=== PATIENT | female | born 1950 | race Caucasian/White ===

== ENCOUNTER 2016-12-24 17:35 | Emergency (ER) ==
[2016-12-24 18:13] LABS: MANUAL DIFF NEEDED? NO
[2016-12-24 18:21] LABS: URINE MICRO REVIEW NEEDED? NO; URINE SOURCE CLEAN CATCH
[2016-12-24 18:25] LABS: EOS# 0.02 X1000 (0.0-0.7); EOS% 0.6 % (0.0-10.0); HEMATOCRIT 40.8 % (37.0-47.0); HEMOGLOBIN 14.2 g/dL (12.0-16.0); LYMPH# 0.96 X1000 (1.2-3.4); LYMPH% 26.5 % (20.5-51.1); MCH 31.6 PG (27-31); MCHC 34.8 g/dL (33-37); MCV 90.9 FL (81-99); MONO% 5.5 % (1.7-9.3); MPV 10.3 FL (7.4-10.4); NEUT% 67.4 % (42.2-75.2); PLT 186 X1000 (130-400); RBC 4.49 XMIL (4.2-5.4)
[2016-12-24 18:31] LABS: BILIRUBIN URINE NEGATIVE (NEGATIVE); BLOOD URINE NEGATIVE (NEGATIVE); COLOR YELLOW; GLUCOSE URINE NEGATIVE (NEGATIVE); LEUKOCYTES URINE SMALL (NEGATIVE); NITRITE URINE NEGATIVE (NEGATIVE); PH URINE 7.5; PROTEIN URINE NEGATIVE (NEGATIVE); SP GRAVITY URINE 1.008; TURBIDITY URINE CLEAR (CLEAR); UROBILINOGEN URINE NORMAL (NORMAL)
[2016-12-24 18:34] LABS: UR EPITHELIAL CELLS <10 /HPF (<10); URINE BACTERIA NEGATIVE /HPF; URINE CULTURE NEEDED? YES; URINE RBC <10 /HPF (<10); URINE WBC <10 /HPF (<10)
[2016-12-24 18:44] LABS: ALBUMIN 4.5 g/dL (3.5-5.0); CALCIUM 9.8 mg/dL (8.8-10.2); POTASSIUM 3.8 mmol/L (3.5-5.1); TOTAL BILIRUBIN 0.34 mg/dL (0.20-1.00); TOTAL PROTEIN 7.1 g/dL (6.3-8.3)
[2016-12-24] MEDS ORDERED: ZOFRAN IV ONE (19:26)
[2016-12-24] MEDS ORDERED: MORPHINE IV ONE (19:26)
--- NOTE | 2016-12-24 19:32 | PROVIDER DOCUMENTATION ---
HPI-Abdominal Pain/GI Problem - General Source: patient - History of Present Illness-ABD Nature of Presenting Problems: 66 y/o F presents to the ED with abdominal pain/bloating, nausea for 3 days and a headache today. Pt has a hx of abdominal problems with complication after of her gallbladder removal with bile leak with a period of a colostomy bag. Everything is reversed. Abdominal Pain Onset Location: reports: generalized abdomen Pain Radiation: reports: no radiation Quality of Pain: reports: aching, tightness Severity in ED: reports: moderate Onset/Duration: reports: 3 days ago Timing: reports: still present Activities at Onset: reports: none Exposure to sick contacts?: No Modifying Factors: worse with: antacids, coughing, urinating Associated Symptoms: reports: headaches, nausea. denies: chest pain, cough, diarrhea, dizziness, fever/chills, sinus congestion/drainage, shortness of breath, vomiting, trouble walking Last BM: unsure Dark Stools Present?: reports: none noticed <Mahad Saab - Last Filed: 12/24/16 19:27> <Loi Bowles - Last Filed: 12/24/16 21:25> - General Chief Complaint: Abdominal Pain Stated Complaint: abd pain/nausea/headache Time Seen by Provider: 12/24/16 19:05 Allergies/Adverse Reactions: Patient Allergies Allergy/AdvReac Type Severity Reaction Status Date / Time adhesive AdvReac RASH Verified 12/24/16 19:43 Home Medications: Home Medication List Medication Instructions Recorded Confirmed Last Taken Type Amlodipine Besylate [Norvasc] 5 mg PO BID 12/29/14 12/24/16 12/24/16 History Bupropion S.r. [Wellbutrin Sr] 150 mg PO BID 12/29/14 12/24/16 12/24/16 History Duloxetine [Cymbalta] 90 mg PO DAILY 12/29/14 12/24/16 12/24/16 History Levothyroxine [Synthroid] 112 microgm PO DAILY 12/29/14 12/24/16 12/24/16 History Trazodone E.r. [Oleptro ER] 150 mg PO QHS 12/29/14 12/24/16 12/23/16 History Docusate Sodium [Colace] 100 mg PO BID #0 capsule 0612/24/16 12/24/16 Rx Polyethylene Glycol 3350 [Miralax] 17 gm PO DAILY #0 powder, packet 03/23/1512/24/16 Rx Aspirin 81 mg PO DAILY 12/24/16 12/24/16 12/24/16 History Docusate Sodium [Colace] 100 mg PO DAILY #10 capsule 12/24/16 Unknown Rx Magnesium Citrate [Citrate of 300 ml PO ONCE #1 bottle 12/24/16 Unknown Rx Magnesia] Na Phos,M-B/Na Phos,Di-Ba [Fleet 133 ml OK HS PRN PRN #3 enema 12/24/16 Unknown Rx Enema] Sulfamethoxazole/Trimethoprim 1 each PO BID #10 tablet 12/24/16 Unknown Rx [Bactrim Ds Tablet] Review of Systems - Adult - REVIEW OF SYSTEMS - ADULT Constitutional: denies: chills, fever Eyes: reports: no symptoms reported Ears, Nose, Mouth & Throat: reports: no symptoms reported Cardiovascular: denies: chest pain, edema Respiratory: denies: cough, shortness of breath, wheezing Gastrointestinal: reports: abdominal pain, nausea. denies: constipation, diarrhea, vomiting Genitourinary: reports: no symptoms reported Musculoskeletal: reports: no symptoms reported Integumentary: reports: no symptoms reported Neurological: reports: headache/migraines. denies: dizziness/vertigo, paresthesia, slurred speech, syncope Psychiatric: reports: no symptoms reported Endocrine: reports: no symptoms reported Hematologic/Lymphatic: reports: no symptoms reported Allergic/Immunologic: reports: no symptoms reported All Other Systems: Reviewed and Negative <Mahad Saab - Last Filed: 12/24/16 19:27> Past History - Adult - PAST MEDICAL HISTORY-ADULT Review of Records: reports: Old Records Reviewed, Nursing Assessment Review, Medications Reviewed Cardiovascular: reports: HTN, palpitations Psychiatric: reports: depression - PRIOR SURGERIES/PROCEDURES Surgical/Procedure History: reports: cholecystectomy - IMMUNIZATION STATUS Childhood Immunizations: See Nurse Assessment Flu Vaccine: See Nurse Assessment - SOCIAL HISTORY Smoking: non-smoker Substance Use: none/never Living Situation: family <Mahad Saab - Last Filed: 12/24/16 19:27> Physical Exam-General - PHYSICAL EXAM-ADULT Initial Vital Signs Reviewed: Yes - CONSTITUTIONAL General Appearance: appears well, alert, no apparent distress - EYES Eyes: PERRL/EOMI, pink conjunctivae - HEAD, EARS, NOSE, MOUTH & THROAT HENMT: moist mucous membranes, normal ENT inspection, TMs normal, pharynx normal - NECK Neck: non-tender, full range of motion, supple, normal inspection. negative: trachial deviation - RESPIRATORY Respiratory: lungs clear, normal breath sounds, no pleuratic chest pain, no respiratory distress, no accessory muscle use, respiratory distress - CARDIOVASCULAR Cardiovascular: normal peripheral pulses, regular rate, rhythm - GASTROINTESTINAL (ABDOMEN) Abdominal Exam: soft, tenderness (epigastrice). negative: normal bowel sounds ( Hypoactive), guarding, rebound, hernia, mass - MUSCULOSKELETAL Back Exam: normal inspection, no CVA tenderness, no vertebral tenderness Extremity: normal range of motion, non-tender, normal gait, normal inspection, no pedal edema - SKIN Integumentary: normal color, normal turgor, warm/dry - NEUROLOGIC Neurologic: grossly normal, no motor/sensory deficits - PSYCHIATRIC Psych/Mental Status: normal mood/affect, normal thought content, normal thought process, oriented x 3 <Mahad Saab - Last Filed: 12/24/16 19:27> Progress - PLAN OF CARE/RESULTS Progress/Plan/Lab Results: Discussed results and plan of care with patient. Patient agrees with plan and verbalizes understanding. Vital Signs Temp Pulse Resp BP Pulse Ox 12/24/16 17:53 98.4 F 79 20 185/93 98 adhesive Adverse Reaction (Verified 12/24/16 19:43) RASH Amlodipine Besylate [Norvasc] 5 mg PO BID 12/29/14 Bupropion S.r. [Wellbutrin Sr] 150 mg PO BID 12/29/14 Duloxetine [Cymbalta] 90 mg PO DAILY 12/29/14 Levothyroxine [Synthroid] 112 microgm PO DAILY 12/29/14 Trazodone E.r. [Oleptro ER] 150 mg PO QHS 12/29/14 Docusate Sodium [Colace] 100 mg PO BID #0 capsule 03/23/15 Polyethylene Glycol 3350 [Miralax] 17 gm PO DAILY #0 powder, packet 03/23/15 Aspirin 81 mg PO DAILY 12/24/16 I&O 12/23/16 12/24/16 12/25/16 06:59 06:59 06:59 Output Total 25 Balance -25 Laboratory 12/24/16 12/24/16 12/24/16 18:17 18:03 18:03 WBC 3.62 L RBC 4.49 Hgb 14.2 Hct 40.8 MCV 90.9 MCH 31.6 H MCHC 34.8 RDW Std Deviation 11.7 Plt Count 186 MPV 10.3 Immature Gran % (Auto) 0.0 Neut % (Auto) 67.4 Lymph % (Auto) 26.5 [place] % (Auto) 5.5 Eos % (Auto) 0.6 Baso % (Auto) 0.0 Immature Gran # (Auto) 0.00 Neut # (Auto) 2.44 Lymph # (Auto) 0.96 L [place] # (Auto) 0.20 Eos # (Auto) 0.02 Baso # (Auto) 0.00 Sodium 140 Potassium 3.8 Chloride 99 Carbon Dioxide 28 Anion Gap 13 BUN 11 Creatinine 1.0 H Estimated GFR/1.73 m2 55 BUN/Creatinine Ratio 11 Glucose 94 Calculated Osmolality 279 Calcium 9.8 Total Bilirubin 0.34 AST 13 ALT 10 Alkaline Phosphatase 69 Total Protein 7.1 Albumin 4.5 Globulin 2.6 Albumin/Globulin Ratio 1.7 Amylase 108 Lipase 28 Urine Source CLEAN CATCH Urine Color YELLOW Urine Turbidity CLEAR Urine pH 7.5 Ur Specific [place] 1.008 Urine Protein NEGATIVE Ur Glucose (Stick) NEGATIVE Ur Ketones (Stick) NEGATIVE Urine Blood NEGATIVE Urine Nitrite NEGATIVE Urine Bilirubin NEGATIVE Urobilinogen Dipstick NORMAL Urine Leukocytes SMALL A Urine WBC (Auto) <10 Urine RBC (Auto) <10 U Epithel Cells (Auto) <10 Urine Bacteria (Auto) NEGATIVE Orders Category Date Time Status Saline Loc NOW Care 12/24/16 17:[address] ABD/PELVIS W/ IV CONT ONLY [CT] Stat Exams 12/24/16 19:27 Taken FLAT/UPRIGHT ABD/1 VIEW CHEST [RAD] Stat Exams 12/24/16 17:51 Taken AMYLASE [CHEM] Stat Lab 12/24/16 18:03 Completed CBC WITH ELECTRONIC DIFF [HEME] Stat Lab 12/24/16 18:03 Completed COMPREHENSIVE METABOLIC PANEL [CHEM] Stat Lab 12/24/16 18:03 Completed LIPASE [CHEM] Stat Lab 12/24/16 18:03 Completed URINALYSIS W/POSS RFLX CULT [URINALYSIS] Stat Lab 12/24/16 18:17 Completed URINE CULTURE [RM] Routine Lab 12/24/16 19:23 Received Morphine Med 12/24/16 19:26 Discontinued 2 mg IV NOW ONE Ondansetron [Zofran] Med 12/24/16 19:26 Discontinued 4 mg IV NOW ONE Laboratory Tests 12/24/16 12/24/16 12/24/16 18:03 18:03 18:17 WBC 3.62 L RBC 4.49 Hgb 14.2 Hct 40.8 MCV 90.9 MCH 31.6 H MCHC 34.8 RDW Std Deviation 11.7 Plt Count 186 MPV 10.3 Immature Gran % (Auto) 0.0 Neut % (Auto) 67.4 Lymph % (Auto) 26.5 [place] % (Auto) 5.5 Eos % (Auto) 0.6 Baso % (Auto) 0.0 Immature Gran # (Auto) 0.00 Neut # (Auto) 2.44 Lymph # (Auto) 0.96 L [place] # (Auto) 0.20 Eos # (Auto) 0.02 Baso # (Auto) 0.00 Sodium 140 Potassium 3.8 Chloride 99 Carbon Dioxide 28 Anion Gap 13 BUN 11 Creatinine 1.0 H Estimated GFR/1.73 m2 55 BUN/Creatinine Ratio 11 Glucose 94 Calculated Osmolality 279 Calcium 9.8 Total Bilirubin 0.34 AST 13 ALT 10 Alkaline Phosphatase 69 Total Protein 7.1 Albumin 4.5 Globulin 2.6 Albumin/Globulin Ratio 1.7 Amylase 108 Lipase 28 Urine Source CLEAN CATCH Urine Color YELLOW Urine Turbidity CLEAR Urine pH 7.5 Ur Specific [place] 1.008 Urine Protein NEGATIVE Ur Glucose (Stick) NEGATIVE Ur Ketones (Stick) NEGATIVE Urine Blood NEGATIVE Urine Nitrite NEGATIVE Urine Bilirubin NEGATIVE Urobilinogen Dipstick NORMAL Urine Leukocytes SMALL A Urine WBC (Auto) <10 Urine RBC (Auto) <10 U Epithel Cells (Auto) <10 Urine Bacteria (Auto) NEGATIVE - CT/MRI 1 CT Study: Abdomen, Pelvis CT Results: Constipation ([place]) <Loi Bowles - Last Filed: 12/24/16 21:25> Departure <Mahad Saab - Last Filed: 12/24/16 19:27> - Departure Time of Disposition Order: 21:22 Certified Medical Emergency: Emergent <Loi Bowles - Last Filed: 12/24/16 21:25> - Departure DIAGNOSIS: Cystitis Constipation Qualifiers: Constipation type: unspecified constipation type Qualified Code(s): K59.00 - Constipation, unspecified Disposition: HOME 01 Condition: Stable Additional Instructions: Follow up with primary care physician Take medications as directed Return to ED for any concerns or worsening of symptoms ED Follow Up Instructions: You have been treated by a care provider in the Emergency Department. These instructions are being provided to you so you can have an understanding of how to care for yourself upon discharge. Upon discharge from the Emergency Department, you are responsible for making arrangements for follow-up care by a physician of your choice. Take all prescribed medications as directed. Return to the Emergency Department immediately for any new or worsening symptoms. You may call the Physician Referral phone number at [phone] to obtain a list of Physicians who are taking new patients. Prescriptions: Sulfamethoxazole/Trimethoprim [Bactrim Ds Tablet] 1 each PO BID #10 tablet Magnesium Citrate [Citrate of Magnesia] 300 ml PO ONCE #1 bottle Docusate Sodium [Colace] 100 mg PO DAILY #10 capsule Na Phos,M-B/Na Phos,Di-Ba [Fleet Enema] 133 ml OK HS PRN PRN #3 enema PRN Reason: Constipation Attestation - Scribe Verification/Attestation Scribe:: Mahad Saab Acting as Scribe for:: Loi Bowles Scribe documention review:: This chart was documented by a scribe and accurately reflects the service the provider performed and the decisions made by the provider. <Mahad Saab - Last Filed: 12/24/16 19:27> - Physician/ NABIL Attestation Patient care was provided by Advanced Practice Provider:: Yes Advanced Practice Provider:: Loi Bowles Advanced Practice Provider documentation review:: The Mid-level provider documentation, treatment plan and medical decision making was reviewed by the physician who agrees with all treatment and medical decision making by the [facility]. <Loi Bowles - Last Filed: 12/24/16 21:25> Physician Attestation
[2016-12-24] MEDS ORDERED: SODIUM CHLORIDE 0.9% INJ ONE (21:41)
[2016-12-24] MEDS ORDERED: DILAUDID IV ONE (21:41)
[2016-12-24] MEDS ORDERED: PHENERGAN IV ONE (21:41)
[2016-12-24 22:06] VITALS: BP 160/88
--- NOTE | 2016-12-25 08:13 | Diag Imaging Result Document ---
PROCEDURE NAME: FLAT/UPRIGHT ABD/1 VIEW CHEST - 12/24/2016 PLAIN RADIOGRAPH OF THE CHEST AND ABDOMEN, 3 VIEWS: COMPARISON: Chest radiograph dated 01/01/2015. FINDINGS: There is a fair amount of stool in the colon suggesting possible constipation. There is no obstructive pattern. There is no evidence of large-volume free abdominal gas. There is no discrete organomegaly. The lungs are clear and cardiac silhouette is unremarkable. IMPRESSION: Suggestion of constipation.
--- NOTE | 2016-12-25 08:19 | Diag Imaging Result Document ---
PROCEDURE NAME: CT ABD/PELVIS W/ IV CONT ONLY - 12/24/2016 CT ABDOMEN AND PELVIS WITH INTRAVENOUS CONTRAST: A CT dose reduction protocol was used. COMPARISON: 12/30/2014. FINDINGS: The lung bases are clear and the heart size is normal. Stable cholecystectomy changes. Stable adrenal nodules. Stable renal cysts. The liver, pancreas, and spleen are normal. There is severe constipation. No bowel obstruction or inflammation. Uterus is absent. Urinary bladder and rectum are normal. Moderate degenerative changes of the spine. No acute bony lesions. IMPRESSION: Severe constipation. Other findings are stable from prior and of doubtful significance. [facility]
== END 2016-12-24 22:06 | disposition home or self-care (01) ==
LOC: ED 17:35
DX: N30.90 Cystitis, unspecified without hematuria (principal); K59.00 Constipation, unspecified; R10.84 Generalized abdominal pain; R14.0 Abdominal distension (gaseous); R11.0 Nausea; R51 Headache; R10.816 Epigastric abdominal tenderness; I10 Essential (primary) hypertension; F32.9 Major depressive disorder, single episode, unspecified; Z79.82 Long term (current) use of aspirin; Z79.899 Other long term (current) drug therapy; Z90.49 Acquired absence of other specified parts of digestive tract
CPT/HCPCS: 74022; 74177; 80053; 81001; 82150; 83690; 85025; 87088; J1170; J2270; J2405; J2550; Q9967